=== PATIENT | male | born 1985 | race Caucasian/White ===

== ENCOUNTER 2019-06-13 12:00 | Day surgery (SDC) | payer OTHER ==
[~2019-06-13] VITALS: Ht 175.3 cm; Wt 145.2 kg
[~2019-06-13 12:00] MED LIST: BACTRIM DS TAB1 EACH PO; CELECOXIB200 MG PO; COZAAR50 MG PO; HYDROCODON-ACE1 EA11 PO; LISINOPRIL10 MG PO; OMEPRAZOLE20 MG PO; RANITIDINE HCL150 M1 PO
[2019-06-13] MEDS ORDERED: SULFAMETHOXAZO1 EAC1 PO (15:34)
[2019-06-13] MEDS ORDERED: HYDROCODON-ACE1 EA11 PO (15:34)
--- NOTE | 2019-06-13 15:50 | NUR ---
06/13/19 1550 Rose Osullivan 1534 PT ARRIVED IN PACU WIDE AWAKE WITH NO C/O'S. L ARM ELEVATED ON PILLOWS AND ICE PLACED. 1540 OXYGEN REMOVED. SITTING UP IN BED SIPPING ON WATER.
--- NOTE | 2019-06-13 16:18 | NUR ---
LE 1555: PT IS BACK TO DS FROM PACU. IS AT THE BEDSIDE. CALL LIGHT WITHIN REACH. WATER ON BEDSIDE TABLE. PT REQUESTING CRACKERS AND 7UP. PT EDUCATED DC CRITERIA. NO ADDITIONAL NEEDS AT THIS TIME.
--- NOTE | 2019-06-13 16:19 | NUR ---
MELANIE 1615: PT IS UP OOB WITH STANDBY ASSIST TO USE THE RESTROOM. PT REPORTS FEELING LIKE HE WAS ABLE TO EMPTY HIS BLADDER. HE AMBULATES HIMSELF BACK TO HIS ROOM. HE WOULD LIKE ANOTHER 7UP.
--- NOTE | 2019-06-13 17:04 | NUR ---
MELANIE 1655: PT INDICATES THAT HE WOULD LIKE TO GO HOME. HE IS ALREADY DRESSED. PT AND ARE GIVEN VERBAL DC INSTRUCTIONS. THEY BOTH VERBALIZE UNDERSTANDING. QUESTIONS ARE ANSWERED. PT IS TAKEN TO CAR VIA WC, HE IS ABLE TO TRANSFER HIMSELF FORM WC TO CAR.
--- NOTE | 2019-06-14 07:47 | OR ---
[facility] [address] [place], [place] [address] Signed DATE OF OPERATION: 06/13/2019 SURGEON: Yovany De La Cruz MD PREOPERATIVE DIAGNOSIS: Postoperative wound infection, left elbow. POSTOPERATIVE DIAGNOSIS: Postoperative wound infection, left elbow. PROCEDURE PERFORMED: Irrigation and debridement of skin and subcutaneous tissue, left elbow. JACKHAMMER OPERATOR: None. ANESTHESIA: General. BLOOD LOSS: Minimal. BRIEF HISTORY: Obey is a 34-year-old gentleman, who underwent a distal biceps repair about 7 weeks ago. Over the weekend, he developed pain and redness in the wound and it ultimately opened up and started draining. He was seen in the emergency department, placed on Bactrim DS, and referred back to us. We saw him in clinic yesterday where the swelling and redness resolved to a large degree; however, the wound was open, and I felt that a debridement and closure would be best for him. Risks and benefits of this were discussed with him and he elected to proceed. DESCRIPTION OF PROCEDURE: Once consent was obtained, he was taken to the operating room. After adequate anesthesia, he was placed on operating room table. All downside pressure points were well padded. Left arm was prepped and draped in a standard sterile fashion. No tourniquet was placed. The previous incision and the opened area were then marked out with a moderate ellipse. This was then incised and the opened area was completely removed as was the underlying soft tissue until good bleeding tissue was encountered. There was no purulent material nor pockets in the area. We did palpate and explore deep with no evidence of any deep infection. The wound was then copiously irrigated with Electronically Signed By: YOVANY DE LA CRUZ MD 06/14/19 0747 PATIENT NAME: OBEY WHITLEY OPERATIVE REPORT DATE OF : 83 REPORT #: [id number] PHYSICIAN: YOVANY DE LA CRZU MD PCP: MURPHY WILKINS PA-C REPORT IS CONFIDENTIAL AND NOT TO BE RELEASED WITHOUT AUTHORIZATION [facility] [address] [place] [address] [place], [place] [address] Signed dilute iodine solution followed by normal saline. Wound was then closed with 3-0 nylon in an interrupted fashion. Wound was dressed with Allevyn silver dressing and Brian wrap. He tolerated the procedure well. All sponge, needle, and instrument counts were correct. Yovany De La Cruz MD BA/MODL /[id number] Copies: ~ Electronically Signed By: YOVANY DE LA CRUZ MD 06/14/19 0747 PATIENT NAME: OBEY WHITLEY OPERATIVE REPORT DATE OF : 83 REPORT #: [id number] PHYSICIAN: YOVANY DE LA CRUZ MD PCP: MURPHY WILKINS PA-C REPORT IS CONFIDENTIAL AND NOT TO BE RELEASED WITHOUT AUTHORIZATION
== END 2019-06-13 17:00 | disposition home or self-care (01) ==
LOC: DS 12:00 → OPS 12:00 → DS 16:00 → OPS 17:00
PROVIDERS: Specialist
PROC: 0R9M0ZZ Drainage of Left Elbow Joint, Open Approach (ICD-10-PCS; principal; 2019-06-13 16:00)
DX: T81.49XA Infection following a procedure, other surgical site, initial encounter (principal); I10 Essential (primary) hypertension; Z79.899 Other long term (current) drug therapy; G47.33 Obstructive sleep apnea (adult) (pediatric); E66.01 Morbid (severe) obesity due to excess calories; Z68.42 Body mass index [BMI] 45.0-49.9, adult; K21.9 Gastro-esophageal reflux disease without esophagitis; Z99.89 Dependence on other enabling machines and devices
CPT/HCPCS: 01740; J0131; J0330; J0690; J1100; J1885; J2250; J2405; J2704; J2765; J3010; J7121